=== PATIENT | male | born 1955 | race Caucasian/White ===

== ENCOUNTER → 2023-10-24 09:59 | Outpatient (BNVA) | payer MEDICARE, OTHER, SELFPAY | PROVIDERS: PCP Family Medicine; Visit Provider Podiatrist Foot & Ankle Surgery | DX: G62.9 Polyneuropathy, unspecified (principal); L84 Corns and callosities; L60.3 Nail dystrophy | CPT/HCPCS: 99203 ==

== ENCOUNTER 2023-12-09 13:07 | Outpatient (RCR) | payer MEDICARE, OTHER, SELFPAY | END 2023-12-23 23:59 | disposition home or self-care (01) | LOC: SPT 13:07 | PROVIDERS: PCP Family Medicine; Visit Provider Family Medicine | DX: M54.2 Cervicalgia (principal); M54.59 Other low back pain | CPT/HCPCS: 97110; 97161 ==

== ENCOUNTER 2023-12-24 06:00 | Outpatient (RCR) | payer MEDICARE, OTHER, SELFPAY | END 2024-01-23 23:59 | disposition home or self-care (01) | LOC: SPT 06:00 | PROVIDERS: PCP Family Medicine; Visit Provider Family Medicine | DX: R53.81 Other malaise (principal) | CPT/HCPCS: 97110; 97164 ==

== ENCOUNTER 2024-01-24 06:00 | Outpatient (RCR) | payer MEDICARE, OTHER, SELFPAY | END 2024-02-22 23:59 | disposition home or self-care (01) | LOC: SPT 06:00 | PROVIDERS: PCP Family Medicine; Visit Provider Family Medicine | DX: M54.2 Cervicalgia (principal); M54.59 Other low back pain | CPT/HCPCS: 97110 ==

== ENCOUNTER 2024-02-23 06:00 | Outpatient (RCR) | payer MEDICARE, OTHER, SELFPAY | END 2024-03-18 23:59 | disposition home or self-care (01) | LOC: SPT 06:00 | PROVIDERS: PCP Family Medicine; Visit Provider Family Medicine | DX: M54.2 Cervicalgia (principal); M54.59 Other low back pain | CPT/HCPCS: 97110 ==